=== PATIENT | male | born 1950 | race Caucasian/White ===

== ENCOUNTER 2020-03-05 18:57 | Emergency (ER) | payer OTHER ==
[~2020-03-05] VITALS: Ht 185.4 cm; Wt 114.3 kg
[2020-03-05 22:11] LABS: BUN/CREATININE RATIO 16 (0-10)
[2020-03-05 22:24] LABS: HEMOGLOBIN 14.4 gm/dl (14.0-17.5); RED BLOOD COUNT 4.7 M/UL (4.20-5.50); WHITE BLOOD COUNT 6.5 K/UL (4.5-11.0)
[2020-03-06] MEDS ORDERED: ASPIRIN 325MG325 MG PO (00:06)
[2020-03-06] MEDS ORDERED: ZITHROMAX500 MG PO (00:06)
[2020-03-06] MEDS ORDERED: PREDNISONE 10 M10 MG PO (00:06)
== END 2020-03-06 02:15 | disposition home or self-care (01) ==
LOC: ER1 18:57
PROVIDERS: Nurse Practitioner
DX: U07.1 COVID-19 (principal); I10 Essential (primary) hypertension; Z88.5 Allergy status to narcotic agent
CPT/HCPCS: 71045; 80053; 83605; 84484; 85025; 87040; 87081; 87880; 93005; 99284; M0239; U0002

== ENCOUNTER 2020-03-10 18:10 | Inpatient (IN) | payer MEDICARE, OTHER ==
[~2020-03-10] VITALS: Ht 185.4 cm; Wt 113.4 kg
[~2020-03-10 18:10] MED LIST: ASPIRIN 325MG325 MG PO; PREDNISONE 10 M10 MG PO; ZITHROMAX500 MG PO
[2020-03-10 20:01] LABS: HEMOGLOBIN 15.8 gm/dl (14.0-17.5); RED BLOOD COUNT 5.03 M/UL (4.20-5.50); WHITE BLOOD COUNT 10.3 K/UL (4.5-11.0)
[2020-03-10 20:14] LABS: BUN/CREATININE RATIO 20 (0-10)
[2020-03-10] MEDS ORDERED: ALLEGRA ALLERG180 MG PO (23:30)
[2020-03-10] MEDS ORDERED: LATANOPROST 0.7.5 ML OU (23:30)
[2020-03-10] MEDS ORDERED: HYDROCHLOROTHIA25 MG PO (23:31)
[2020-03-10] MEDS ORDERED: LISINOPRIL30 MG PO (23:31)
[2020-03-11 07:12] LABS: HEMOGLOBIN 12.9 gm/dl (14.0-17.5); RED BLOOD COUNT 4.22 M/UL (4.20-5.50); WHITE BLOOD COUNT 7.7 K/UL (4.5-11.0)
[2020-03-11 07:28] LABS: BUN/CREATININE RATIO 16 (0-10)
[2020-03-12 04:10] LABS: HEMOGLOBIN 14.6 gm/dl (14.0-17.5); RED BLOOD COUNT 4.72 M/UL (4.20-5.50); WHITE BLOOD COUNT 7.9 K/UL (4.5-11.0)
[2020-03-12 04:48] LABS: BUN/CREATININE RATIO 28 (0-10)
[2020-03-12] MEDS ORDERED: DECADRON6 MG PO (16:38)
--- NOTE | 2020-03-12 16:48 | NUR ---
PT HAS A KNOT ON RIGHT DELTOID NOTICED UPON ASSESSMENT. MD HAS BEEN NOTIFIED AND IS AWARE OF THIS.
== END 2020-03-12 18:19 | disposition home or self-care (01) | DRG 177 ==
LOC: ER1 18:10 → CDU 23:12 → M/S 23:12
PROVIDERS: Emergency Medicine; Internal Medicine Infectious Disease; ADMIT Internal Medicine
PROC: 8E0ZXY6 Isolation (ICD-10-PCS; principal; 2020-03-10)
PROC: XW13325 Transfusion of Convalescent Plasma (Nonautologous) into Peripheral Vein, Percutaneous Approach, New Technology Group 5 (ICD-10-PCS; 2020-03-11)
PROC: XW033E5 Introduction of Remdesivir Anti-infective into Peripheral Vein, Percutaneous Approach, New Technology Group 5 (ICD-10-PCS; 2020-03-11)
DX: U07.1 COVID-19 (principal); J12.82 Pneumonia due to coronavirus disease 2019; J96.01 Acute respiratory failure with hypoxia; E87.6 Hypokalemia; D69.6 Thrombocytopenia, unspecified; R79.1 Abnormal coagulation profile; R74.01 Elevation of levels of liver transaminase levels; I10 Essential (primary) hypertension; E11.9 Type 2 diabetes mellitus without complications; J30.9 Allergic rhinitis, unspecified; Z88.5 Allergy status to narcotic agent; Z98.49 Cataract extraction status, unspecified eye; Z80.9 Family history of malignant neoplasm, unspecified; Z83.6 Family history of other diseases of the respiratory system; Z79.82 Long term (current) use of aspirin; Z79.899 Other long term (current) drug therapy
CPT/HCPCS: 36415; 36600; 71045; 80048; 80053; 82550; 82553; 82728; 82803; 82962; 83605; 83874; 83880; 84484; 85025; 85379; 86900; 86901; 86927; 87040; 93005; 96365; 96367; 99285; G0378; J0456; J0696; J1100; J1650; J7030; Q9967